=== PATIENT | male | born 1990 | race Caucasian/White ===

== ENCOUNTER 2025-02-27 17:09 | Emergency (ER) | payer OTHER ==
[2025-02-27] MEDS ORDERED: Naloxone 0.4 MG/ML SDV IVPUSH PRN (17:22)
[2025-02-27 17:34] LABS: BASOPHILS ABSOLUTE AUTO 0.0 K/mm3 (0.0-0.2); BASOPHILS PERCENT AUTO 0.1 % (0.0-1.0); EOSINOPHILS ABSOLUTE AUTO 0.0 K/mm3 (0.0-0.4); EOSINOPHILS PERCENT AUTO 0.1 % (0.0-6.0); IMMATURE GRAN ABSOLUTE AUTO 0.09 K/mm3 (0.00-0.05); IMMATURE GRAN PERCENT AUTO 0.6 % (0.0-0.4); LYMPHOCYTES ABSOLUTE AUTO 0.9 K/mm3 (1.0-4.8); LYMPHOCYTES PERCENT AUTO 6.4 % (24.0-44.0); MEAN PLATELET VOLUME 9.6 fl (9.4-12.4); MONOCYTES ABSOLUTE AUTO 1.1 K/mm3 (0.0-0.8); MONOCYTES PERCENT AUTO 7.7 % (0.0-8.0); NEUTROPHILS ABSOLUTE AUTO 12.2 K/mm3 (1.8-7.7); NEUTROPHILS PERCENT AUTO 85.1 % (41.0-71.0); NRBC ABSOLUTE 0.00 (0.00-0.02); NRBC PERCENT 0.0 % (0.0-0.2); PLATELET COUNT,PLT 251 K/mm3 (150-400); RED BLOOD CELL COUNT 5.17 M/mm3 (4.52-5.90); WHITE BLOOD CELL COUNT,WBC 14.29 K/mm3 (3.9-11.3)
[2025-02-27 17:45] LABS: A/G RATIO 1.1 (1-2); ALANINE AMINOTRANSFERASE,ALT 61 U/L (16-63); ASPARTATE AMNIOTRANSFERASE,AST 42 U/L (15-37); BILIRUBIN TOTAL 0.6 mg/dL (0.2-1.0); BLOOD UREA NITROGEN,BUN 22 mg/dL (7-18); CARBON DIOXIDE,CO2 26 mEq/L (21-32); CHLORIDE,CL 106 mEq/L (98-107); CREATINE KINASE,CK 393 U/L (39-308); CREATININE 1.1 mg/dL (0.7-1.3); ESTIMATED GFR 90 mL/min (>60); GLUCOSE RANDOM 112 mg/dL (70-99); POTASSIUM,K 4.2 mEq/L (3.5-5.1); PROTEIN TOTAL,TP 7.6 g/dl (6.4-8.2); SODIUM,NA 140 mEq/L (136-145)
[2025-02-27 17:47] LABS: ETHANOL BLOOD MEDICAL 0.00 gm% (0.00)
[2025-02-27 17:53] LABS: INR 0.98
[2025-02-27 19:16] LABS: APPEARANCE,URINE CLEAR (Clear); GLUCOSE,URINE NEGATIVE (Negative); OCCULT BLOOD,URINE TRACE-INTACT (Negative)
[2025-02-27 19:26] LABS: BUPRENORPHINE SCREEN,URINE NEGATIVE (CUTOFF=10); METHADONE SCREEN, URINE NEGATIVE (CUT0FF=200); METHAMPHETAMINES SCREEN, URINE NEGATIVE (CUTOFF=500); OXYCODONE SCREEN,URINE NEGATIVE (CUT0FF=100); THC SCREEN,URINE 20 NG/ML NEGATIVE (CUTOFF=50)
[2025-02-27 19:27] LABS: AMPHETAMINES SCREEN, URINE NEGATIVE (CUTOFF=500)
[2025-02-27 19:30] LABS: EPITHELIAL CELLS,URINE 0-5 /hpf (0-5)
== END 2025-02-27 19:15 | disposition home or self-care (01) ==
LOC: JD.ED 17:09
DX: S32.039A Unspecified fracture of third lumbar vertebra, initial encounter for closed fracture (principal); S32.049A Unspecified fracture of fourth lumbar vertebra, initial encounter for closed fracture; S30.1XXA Contusion of abdominal wall, initial encounter; S40.021A Contusion of right upper arm, initial encounter; Z79.899 Other long term (current) drug therapy; W17.89XA Other fall from one level to another, initial encounter; Y93.89 Activity, other specified
CPT/HCPCS: 36415; 70450; 71045; 71260; 72125; 72170; 73020; 73070; 74177; 80053; 80306; 80307; 81001; 82550; 83690; 83735; 85025; 85610; 86850; 86900; 86901; 96374; 99285; J1171; J7030; 99284